=== PATIENT | female | born 1960 | race Caucasian/White ===

== ENCOUNTER 2023-04-03 14:43 | Emergency (ER) | payer OTHER ==
[~2023-04-03] VITALS: Ht 177.8 cm; Wt 129.1 kg
[2023-04-03 14:44] VITALS: TEMP 99
[2023-04-03] MEDS ORDERED: ketorolac trometh. 30mg/ml inj. IV STA (15:18)
[2023-04-03] MEDS ORDERED: normal saline 1000ml 1,000 ML IV ONE (15:20)
[2023-04-03] MEDS ORDERED: ondansetron/PF 4mg/2ml inj IV ONE (15:20)
[2023-04-03 15:41] LABS: ALANINE AMINOTRANSFERASE 41 U/L (12-78); ALBUMIN 4.2 G/DL (3.4-5.0); ALKALINE PHOSPHATASE 75 IU/L (46-116); ANION GAP 10 (8-16); ASPARTATE AMINO TRANSFERASE 30 U/L (10-37); BILIRUBIN,TOTAL 0.3 MG/DL (0.1-1.0); BLOOD UREA NITROGEN 13 MG/DL (7-18); BUN/CREATININE RATIO 8.2 (10.0-20.0); CALCIUM 9.5 MG/DL (8.5-10.1); CHLORIDE 100 MMOL/L (99-107); CREATININE 1.58 MG/DL (0.40-0.90); GLUCOSE 97 MG/DL (70-104); LIPASE 47 U/L (16-77); SODIUM 136 MMOL/L (135-145); TOTAL CARBON DIOXIDE 25.8 MMOL/L (24-32); TOTAL PROTEIN 8.5 G/DL (6.4-8.2); eCRCL 39 ML/MIN; eGFR 33 ML/MIN
[2023-04-03 15:42] LABS: BASOPHILS # (AUTO) 0.1 X10'3 (0-0.2); BASOPHILS % (AUTO) 0.9 % (0-1); EOSINOPHILS # (AUTO) 0.1 X10'3 (0-0.9); EOSINOPHILS % (AUTO) 1.2 % (0-6); HEMATOCRIT 42.4 % (35.0-45.0); HEMOGLOBIN 14.2 g/dl (12.0-16.0); LYMPHOCYTES # (AUTO) 1.2 X10'3 (1.1-4.8); LYMPHOCYTES % (AUTO) 15.8 % (21-51); MEAN CORPUSCULAR HEMOGLOBIN 31.1 PG (27.0-31.0); MEAN CORPUSCULAR HGB CONC 33.5 g/dL (33.0-36.5); MEAN CORPUSCULAR VOLUME 92.8 FL (78-98); MEAN PLATELET VOLUME 8.1 FL (7.4-10.4); MONOCYTES # (AUTO) 0.5 X10'3 (0-0.9); MONOCYTES % (AUTO) 6.3 % (2-12); NEUTROPHILS # (AUTO) 5.7 X10'3 (1.8-7.7); NEUTROPHILS % (AUTO) 75.8 % (42-75); PLATELET COUNT 284 X10'3 (140-440); RED BLOOD COUNT 4.57 X10'6 (4.20-5.60); RED CELL DISTRIBUTION WIDTH 13.6 % (11.5-14.5); WHITE BLOOD COUNT 7.6 X10'3 (4.5-11.0)
[2023-04-03] MEDS: morphine 2 MG/ML inj. syringe IV PRN ×3 (15:53→16:33)
[2023-04-03 17:27] LABS: BILIRUBIN,URINE MODERATE (Neg); CLARITY,URINE SLIGHTLY CLOUDY (Clear); COLOR,URINE YELLOW (Yellow); GLUCOSE, URINE NEGATIVE (Neg); KETONES,URINE 15 mg/dl (Neg); LEUKOCYTE ESTERASE ,URINE NEGATIVE (Neg); NITRITES, URINE NEGATIVE (Neg); OCCULT BLOOD,URINE NEGATIVE (Neg); PROTEIN,URINE 30 mg/dl (Neg)
[2023-04-03 17:29] LABS: UA COLLECTION TYPE STRAIGHT CATH
[2023-04-03 17:37] LABS: MUCUS STRANDS MANY /LPF (Neg); SQUAMOUS EPITHELIAL CELL,UR MANY /LPF (FEW)
[2023-04-03 17:40] LABS: BACTERIA,URINE 1+ /HPF (Neg); RBC,URINE 0-2 /HPF (0-2); WBC,URINE 0-4 /HPF (0-4)
[2023-04-03 18:18] VITALS: BP 116/62; PULSE 77; RESP 16; O2SAT 96
== END 2023-04-03 18:27 | disposition home or self-care (01) ==
LOC: ER 14:44
DX: R10.9 Unspecified abdominal pain (principal); G89.29 Other chronic pain; M54.9 Dorsalgia, unspecified; Z88.8 Allergy status to other drugs, medicaments and biological substances
CPT/HCPCS: 36415; 71045; 74176; 80053; 81001; 83690; 85025; 93005; 96361; 96374; 96375; 99285; J1885; J2270; J2405; J7030; 96365; C1758

== ENCOUNTER 2023-04-08 09:40 | Emergency (ER) | payer OTHER ==
[~2023-04-08] VITALS: Ht 177.8 cm; Wt 127.3 kg
[2023-04-08 09:41] VITALS: BP 168/74; PULSE 77; TEMP 98.4; O2SAT 99
[2023-04-08] MEDS ORDERED: diazepam inj 5 MG/ML inj. IM ONE (09:50)
[2023-04-08] MEDS ORDERED: ketorolac trometh inj. 60 MG/2 ML VIAL IM ONE (09:50)
[2023-04-08] MEDS ORDERED: NAPR-56 PO (09:52)
[2023-04-08] MEDS ORDERED: CYCL-1 PO (09:52)
[2023-04-08] MEDS ORDERED: ketorolac trometh. 30mg/ml inj. IM ONE (09:55)
[2023-04-08 10:33] VITALS: RESP 18
== END 2023-04-08 10:46 | disposition home or self-care (01) ==
LOC: ER 09:41
DX: M54.50 Low back pain, unspecified (principal); G89.29 Other chronic pain; Z90.710 Acquired absence of both cervix and uterus; Z79.899 Other long term (current) drug therapy
CPT/HCPCS: 96372; 99284; J1885; J3360